=== PATIENT | male | born 1945 | race Caucasian/White ===

== ENCOUNTER 2020-10-18 10:36 | Inpatient (IN) ==
[2020-10-18 11:26] LABS: Basophils % 0.3 %; Eosinophils # 0.1 K/mcL (0.0-0.6); Eosinophils % 0.5 %; Hematocrit 37.5 % (37.5-50.1); Hemoglobin 11.6 g/dL (12.9-16.9); Immature Granulocytes % 2.4 % (0-4); Lymphocytes # 1.5 K/mcL (0.6-4.6); Lymphocytes % 13.5 %; Mean Corpuscular HGB Conc 30.9 g/dL (31.6-35.5); Mean Corpuscular Hemoglobin 25.3 pg (28.0-33.3); Mean Corpuscular Volume 81.7 fL (83.0-100.0); Mean Platelet Volume 10.3 fL (9.4-12.4); Monocytes # 0.6 K/mcL (0.0-1.3); Monocytes % 5.3 %; Neutrophils # 8.6 K/mcL (1.6-8.9); Platelet Count 447 K/mcL (140-400); Red Blood Count 4.59 M/mcL (4.19-5.50); Red Cell Distribution Width 16.5 % (11.5-14.5)
[2020-10-18 11:29] LABS: INR 1.2; Prothrombin Time 13.3 Seconds (9.4-12.1)
[2020-10-18 11:43] LABS: Magnesium 1.5 mg/dL (1.6-2.6)
[2020-10-18 11:49] LABS: Phosphorous 3.3 mg/dL (2.7-4.5)
[2020-10-18 11:51] LABS: Alanine Aminotransferase 13 Units/L (7-52); Albumin 3.2 g/dL (3.5-5.7); Albumin/Globulin Ratio 1.3 (1.1-2.2); Alkaline Phosphatase 100 Units/L (34-104); Aspartate Amino Transferase 12 Units/L (13-39); BUN/Creatinine Ratio 17 (6-26); Bilirubin,Total 0.4 mg/dL (0.3-1.0); Blood Urea Nitrogen 16 mg/dL (8-23); Carbon Dioxide 24 mEq/L (23-29); Chloride 102 mEq/L (98-107); Globulin 2.5 g/dL (2.4-3.5); Glucose 96 mg/dL (70-105); Osmolality,Calculated 283 (280-300); Sodium 136 mEq/L (136-145); Total Protein 5.7 g/dL (6.4-8.9); Troponin I < 0.03 ng/mL (< 0.04); eGFR For African Americans > 60 (> 60); eGFR For Non-African Americans > 60 (> 60)
[2020-10-18 11:52] LABS: Thyroid Stimulating Hormone 4.542 mcIU/mL (0.340-5.600)
[2020-10-18] MEDS ORDERED: *HR* HYDROcodone/Acet 5/325 mg TABLET PO ONE (12:07)
[2020-10-18] MEDS ORDERED: Isovue-370 500 ML BOTTLE IVP ONE (13:15)
[2020-10-18] MEDS ORDERED: Naloxone 0.4 MG/ML INJ IVP PRN (13:33)
[2020-10-18] MEDS ORDERED: Magnesium Sulfate 1 GM/102 ML PIGGYBACK IVPB ONE (13:33)
[2020-10-18] MEDS ORDERED: *HR* Dextrose 50 % in Water (Vial) 50 ML VIAL IVP PRN (13:52)
[2020-10-18] MEDS ORDERED: D5% in Water 1,000 ML IVC PRN (13:52)
[2020-10-18] MEDS ORDERED: Dextrose Gel 15 GM/37.5 ML TUBE PO PRN ×2 (13:52)
[2020-10-18] MEDS ORDERED: Insulin LISPRO 300 UNITS/3 ML VIAL SUBQ SCH (13:53)
[2020-10-18] MEDS ORDERED: traZODone 50 MG TABLET PO PRN (13:53)
[2020-10-18 13:56] LABS: Carcinoembryonic Antigen 2.8 ng/mL (Less than 5.0)
[2020-10-18] MEDS: Furosemide 20 MG/2 ML VIAL IVP ONE (15:47)
[2020-10-18] MEDS: Gabapentin 300 MG CAPSULE PO SCH ×2 (15:48→20:33)
[2020-10-18 15:58] LABS: Bilirubin,Urine Negative (Negative); Blood,Urine Negative (Negative); Clarity,Urine Clear (Clear); Color,Urine Light-Yellow (Yellow); Glucose,Urine (UA) Normal (Normal); Ketones,Urine Negative (Negative); Leukocyte Esterase,Urine Negative (Negative); Nitrite,Urine Negative (Negative); Protein,Urine Negative (Neg-Trace); Specific Gravity,Urine > 1.030 (1.010-1.025); Urobilinogen,Urine Normal (Normal)
[2020-10-18] MEDS: Insulin LISPRO 300 UNITS/3 ML VIAL SUBQ SCH ×2 (17:14→20:27)
[2020-10-18] MEDS: *HR* Heparin 5,000 UNIT/ML VIAL SQ SCH (18:14)
[2020-10-19] MEDS: *HR* Heparin 5,000 UNIT/ML VIAL SQ SCH ×2 (05:35→17:22)
[2020-10-19 06:19] LABS: Magnesium 1.8 mg/dL (1.6-2.6)
[2020-10-19] MEDS: Insulin LISPRO 300 UNITS/3 ML VIAL SUBQ SCH ×5 (08:03→20:42)
[2020-10-19] MEDS: Gabapentin 300 MG CAPSULE PO SCH ×3 (08:05→20:15)
[2020-10-19] MEDS: Insulin DETEMIR 100 UNIT/ML X5UNITS SUBQ SCH (08:11)
[2020-10-19] MEDS ORDERED: Acetaminophen 325 MG TABLET PO PRN ×2 (09:00→12:22)
[2020-10-19] MEDS ORDERED: methocarbamoL 750 MG TABLET PO PRN (09:00)
[2020-10-19] MEDS ORDERED: Capsaicin 0.025% 60 GM TUBE TP PRN (12:22)
[2020-10-19] MEDS ORDERED: Lidocaine 5% OINT 35 APPL/35.44 GM TUBE TP PRN (12:22)
[2020-10-19] MEDS ORDERED: Furosemide 20 MG/2 ML VIAL IVP ONE (12:25)
[2020-10-19] MEDS: Furosemide 20 MG/2 ML VIAL IVP ONE (14:40)
[2020-10-19] MEDS: Aspirin Enteric Coated 81 MG Tablet PO SCH (14:40)
[2020-10-19] MEDS: polyethylene glycoL 3350 17 GM POWD.PACK PO SCH (14:40)
[2020-10-19] MEDS: Furosemide 20 MG TABLET PO SCH (17:22)
[2020-10-19] MEDS: Sennosides/Docusate Sodium TABLET PO SCH (20:15)
[2020-10-20] MEDS: *HR* Heparin 5,000 UNIT/ML VIAL SQ SCH ×2 (05:53→17:38)
[2020-10-20] MEDS: Insulin LISPRO 300 UNITS/3 ML VIAL SUBQ SCH ×6 (08:20→20:23)
[2020-10-20] MEDS: Sennosides/Docusate Sodium TABLET PO SCH ×2 (08:31→19:56)
[2020-10-20] MEDS: Insulin DETEMIR 100 UNIT/ML X5UNITS SUBQ SCH (08:31)
[2020-10-20] MEDS: polyethylene glycoL 3350 17 GM POWD.PACK PO SCH (08:32)
[2020-10-20] MEDS: Aspirin Enteric Coated 81 MG Tablet PO SCH (08:33)
[2020-10-20] MEDS: Gabapentin 300 MG CAPSULE PO SCH ×3 (08:33→19:56)
[2020-10-20] MEDS: Furosemide 20 MG TABLET PO SCH ×2 (08:33→17:38)
[2020-10-21] MEDS: *HR* Heparin 5,000 UNIT/ML VIAL SQ SCH ×2 (05:43→17:28)
[2020-10-21] MEDS: Insulin LISPRO 300 UNITS/3 ML VIAL SUBQ SCH ×6 (08:19→21:00)
[2020-10-21] MEDS: polyethylene glycoL 3350 17 GM POWD.PACK PO SCH (08:20)
[2020-10-21] MEDS: Insulin DETEMIR 100 UNIT/ML X5UNITS SUBQ SCH (08:20)
[2020-10-21] MEDS: Sennosides/Docusate Sodium TABLET PO SCH ×2 (08:20→21:00)
[2020-10-21] MEDS: Aspirin Enteric Coated 81 MG Tablet PO SCH (08:21)
[2020-10-21] MEDS: Furosemide 20 MG TABLET PO SCH ×2 (08:21→17:28)
[2020-10-21] MEDS: Gabapentin 300 MG CAPSULE PO SCH ×3 (08:21→21:00)
[2020-10-22] MEDS: *HR* Heparin 5,000 UNIT/ML VIAL SQ SCH (05:38)
[2020-10-22] MEDS: Insulin LISPRO 300 UNITS/3 ML VIAL SUBQ SCH ×3 (08:40→11:58)
[2020-10-22] MEDS: Furosemide 20 MG TABLET PO SCH (08:41)
[2020-10-22] MEDS: Aspirin Enteric Coated 81 MG Tablet PO SCH (08:41)
[2020-10-22] MEDS: Gabapentin 300 MG CAPSULE PO SCH ×2 (08:41→15:12)
[2020-10-22] MEDS: polyethylene glycoL 3350 17 GM POWD.PACK PO SCH (08:42)
[2020-10-22] MEDS: Sennosides/Docusate Sodium TABLET PO SCH (08:42)
[2020-10-22] MEDS: Insulin DETEMIR 100 UNIT/ML X5UNITS SUBQ SCH (08:48)
[2020-10-22 15:46] VITALS: BP 100/62
== END 2020-10-22 16:43 | DRG 595 ==
LOC: 3ANU 10:36 → EMEROOARM 10:36 → SUATTDRO 13:08 → 3ANU 13:59 → SUATTDRO 10-19 13:03
PROVIDERS: ADMIT Student in an Organized Health Care Education/Training Program; ATTEND Internal Medicine

== ENCOUNTER 2020-11-09 10:35 | Inpatient (IN) ==
[2020-11-09] MEDS ORDERED: cefTRIAXone 1,000 MG in Water for inj. (sterile) 10 ML IVP ONE (10:51)
[2020-11-09] MEDS ORDERED: Azithromycin 500 MG in 0.9 % Sodium Chloride 250 ML IVPB ONE (10:51)
[2020-11-09] MEDS ORDERED: Ampicillin/Sulbactam 1,500 MG in 0.9 % Sodium Chloride Mini Bag 100 ML IVPB ONE (10:52)
[2020-11-09] MEDS ORDERED: 0.9 % Sodium Chloride 500 ML IVC ONE (10:55)
[2020-11-09 11:28] LABS: Basophils # 0.1 K/mcL (0.0-0.2); Basophils % 0.4 %; Eosinophils % 0.1 %; Hematocrit 43.9 % (37.5-50.1); Hemoglobin 12.9 g/dL (12.9-16.9); Immature Granulocytes % 0.6 % (0-4); Lymphocytes # 1.9 K/mcL (0.6-4.6); Lymphocytes % 9.8 %; Mean Corpuscular HGB Conc 29.4 g/dL (31.6-35.5); Mean Corpuscular Hemoglobin 24.4 pg (28.0-33.3); Mean Corpuscular Volume 83.1 fL (83.0-100.0); Mean Platelet Volume 10.8 fL (9.4-12.4); Monocytes # 1.5 K/mcL (0.0-1.3); Monocytes % 7.5 %; Platelet Count 597 K/mcL (140-400); Red Blood Count 5.28 M/mcL (4.19-5.50); Red Cell Distribution Width 18.6 % (11.5-14.5); Segmented Neutrophils % 81.6 %; White Blood Count 19.4 K/mcL (4.3-11.1)
[2020-11-09 11:45] LABS: Alanine Aminotransferase 5 Units/L (7-52); Albumin 3.2 g/dL (3.5-5.7); Albumin/Globulin Ratio 1.2 (1.1-2.2); Alkaline Phosphatase 95 Units/L (34-104); Aspartate Amino Transferase 12 Units/L (13-39); BUN/Creatinine Ratio 20 (6-26); Bilirubin,Direct 0.1 mg/dL (0.0-0.2); Bilirubin,Indirect 0.2 mg/dL (0.0-1.0); Bilirubin,Total 0.3 mg/dL (0.3-1.0); Blood Urea Nitrogen 19 mg/dL (8-23); Calcium 9.1 mg/dL (8.6-10.3); Carbon Dioxide 15 mEq/L (23-29); Chloride 109 mEq/L (98-107); Globulin 2.6 g/dL (2.4-3.5); Glucose 397 mg/dL (70-105); Osmolality,Calculated 313 (280-300); Potassium 3.8 mEq/L (3.5-5.1); Sodium 142 mEq/L (136-145); Total Protein 5.8 g/dL (6.4-8.9); Troponin I 0.04 ng/mL (< 0.04); eGFR For African Americans > 60 (> 60); eGFR For Non-African Americans > 60 (> 60)
[2020-11-09 11:51] LABS: Neutrophils # 15.8 K/mcL (1.6-8.9)
[2020-11-09 13:07] LABS: VBG HCO3 21 mEq/L (21-27); VBG PCO2 42 mmHg (41-51); VBG PH 7.31 pH Units (7.32-7.42); VBG PO2 142 mmHg (25-50)
[2020-11-09 13:55] LABS: Uric Acid 7.5 mg/dL (2.3-7.6)
[2020-11-09 13:55] LABS: Adenovirus Not Detected (Not Detect); Bordetella Pertussis Not Detected (Not Detect); Chlamydophila pneumoniae Not Detected (Not Detect); Coronavirus 229E Not Detected (Not Detect); Coronavirus HKU1 Not Detected (Not Detect); Coronavirus NL63 Not Detected (Not Detect); Coronavirus OC43 Not Detected (Not Detect); Human Metapneumovirus Not Detected (Not Detect); Human Rhinovirus/Enterovirus Not Detected (Not Detect); Influenza A Subtype 2009 H1 Not Detected (Not Detect); Influenza B Not Detected (Not Detect); Mycoplasma pneumoniae Not Detected (Not Detect); Parainfluenza Virus 1 Not Detected (Not Detect); Parainfluenza Virus 2 Not Detected (Not Detect); Parainfluenza Virus 3 Not Detected (Not Detect); Parainfluenza Virus 4 Not Detected (Not Detect); Respiratory Syncytial Virus Not Detected (Not Detect); SARS-CoV-2 Not Detected (Not Detect)
[2020-11-09 13:56] LABS: Lactate Dehydrogenase 704 Units/L (140-271)
[2020-11-09 13:58] LABS: INR 1.3; Prothrombin Time 14.4 Seconds (9.4-12.1)
[2020-11-09] MEDS ORDERED: *HR* FentaNYL (PF) 100 MCG/2 ML VIAL IVP ONE (13:58)
[2020-11-09] MEDS ORDERED: Naloxone 0.4 MG/ML INJ IVP PRN (14:14)
[2020-11-09] MEDS ORDERED: Ondansetron 4 MG/2 ML VIAL IVP PRN (14:14)
[2020-11-09] MEDS ORDERED: Glycopyrrolate 0.2 MG/ML VIAL IVP ONE (16:10)
[2020-11-09] MEDS ORDERED: Haloperidol Lactate 5 MG/ML VIAL IVP PRN (16:10)
[2020-11-09] MEDS ORDERED: Scopolamine Patch 1.5 MG PATCH.TD72 TD SCH (16:15)
[2020-11-09] MEDS: Morphine Sulfate Oral CONC 10 MG/0.5 ML ORAL.SYG SL SCH ×2 (16:35→20:31)
[2020-11-09] MEDS: Ampicillin/Sulbactam 3,000 MG in 0.9 % Sodium Chloride Mini Bag 100 ML IVPB SCH (18:29)
[2020-11-09] MEDS: Atropine 1% Opth Drops 100 DROP/5 ML BOTTLE SL PRN (20:34)
[2020-11-10] MEDS: Morphine Sulfate Oral CONC 10 MG/0.5 ML ORAL.SYG SL SCH ×7 (00:31→23:57)
[2020-11-10] MEDS: Ampicillin/Sulbactam 3,000 MG in 0.9 % Sodium Chloride Mini Bag 100 ML IVPB SCH ×2 (00:32→05:11)
[2020-11-10] MEDS: Atropine 1% Opth Drops 100 DROP/5 ML BOTTLE SL PRN (05:16)
[2020-11-10 06:32] LABS: Hematocrit 37.1 % (37.5-50.1); Mean Corpuscular HGB Conc 30.5 g/dL (31.6-35.5); Mean Corpuscular Hemoglobin 24.9 pg (28.0-33.3); Mean Corpuscular Volume 81.7 fL (83.0-100.0); Mean Platelet Volume 11.2 fL (9.4-12.4); Platelet Count 352 K/mcL (140-400); Red Blood Count 4.54 M/mcL (4.19-5.50); Red Cell Distribution Width 18.6 % (11.5-14.5)
[2020-11-10 06:33] LABS: Hemoglobin 11.3 g/dL (12.9-16.9); White Blood Count 8.7 K/mcL (4.3-11.1)
[2020-11-10 06:52] LABS: BUN/Creatinine Ratio 22 (6-26); Blood Urea Nitrogen 19 mg/dL (8-23); Calcium 8.6 mg/dL (8.6-10.3); Carbon Dioxide 21 mEq/L (23-29); Chloride 115 mEq/L (98-107); Glucose 370 mg/dL (70-105); Magnesium 1.5 mg/dL (1.6-2.6); Osmolality,Calculated 323 (280-300); Phosphorous 1.5 mg/dL (2.7-4.5); Potassium 3.4 mEq/L (3.5-5.1); Sodium 148 mEq/L (136-145); eGFR For African Americans > 60 (> 60); eGFR For Non-African Americans > 60 (> 60)
[2020-11-10] MEDS ORDERED: Acetaminophen 650 MG RECTAL SUPP RC PRN (09:47)
[2020-11-10 19:14] VITALS: BP 137/78
== END 2020-11-11 00:39 | disposition expired | DRG 871 ==
LOC: 2ANU 10:35 → EMEROOARM 10:35 → SUATTDRO 15:07 → 2ANU 15:40
PROVIDERS: ADMIT Internal Medicine; ATTEND Family Medicine